=== PATIENT | female | born 1980 | race African-American/Black ===

== ENCOUNTER 2017-11-22 17:39 | Inpatient (IN) | payer OTHER ==
[~2017-11-22] VITALS: Ht 188 cm; Wt 195.5 kg
--- NOTE | ~2017-11-22 | EKG ---
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 : 1980 Requested By: Romana Barton Order Number: [id number] MD: Antonio Boucher Measurements Intervals [place] Rate: 112 P: 71 ME: 164 QRS: 70 QRSD: 88 T: 28 QT: 322 QTc: 440 Interpretive Statements Sinus tachycardia Otherwise no significant abnormality Compared to ECG 07/01/2013 16:21:45 T-wave abnormality no longer present Electronically Signed On 11-23-2017 8:04:49 CDT by Antonio Boucher [email or web address] <ELECTRONICALLY SIGNED> By: Antonio Boucher MD, [facility] 11/23/17 0804 1800 1800 Antonio Boucher MD, [facility] /EPI
--- NOTE | ~2017-11-22 | HC ---
[facility] [place] [address] CONSULTATION Name: CIRILO NI Fam Room #: 349-I ADM IN M.R.#: [id number] Admission: 11/22/17 Attend Phys: Oc Clement MD Discharge: Date of : 78 Report #: [id number] THIS REPORT FOR: //name// CC: Oc Clement [facility] physician/PCP DATE OF SERVICE: 11/23/2017 ENDOCRINE CONSULTATION LOCATION: The patient in room 349, [facility]. Patient of Dr. Oc Clement. SUBJECTIVE: A 37-year-old black female with a long history of morbid obesity and a family history of diabetes occurring in her mother and both maternal grandparents. The patient has had chronic obesity since age 12 with some increasing recent weight gain. She is not on any specific dietary restriction and snacks frequently. Her activity level is extremely limited. She has no prior known history of diabetes. The patient was admitted with nausea, dizziness and orthostasis with recent problems with polyuria, polydipsia, etc. Upon admission, the patient's blood sugar was found to be greater than 600, and she was admitted and treated with insufficient limited IV fluids and probably unnecessary intravenous insulin with a rapid lowering blood sugar, but unfortunately, very limited rehydration. The patient also has a history of hypertension and has been on a variety of different medications. Currently, she has been on amlodipine and hydrochlorothiazide, which can also worsen both insulin resistance and lipid intolerance. Otherwise, the patient has a history of migraine headaches for which she was receiving verapamil. She has no other pertinent past or family medical history to report at this time that has not previously been documented. OBJECTIVE: LABORATORY DATA: Admission glucose 622 as mentioned above. Other laboratory studies show sodium 136, potassium 3.5, chloride 105, CO2 of 22, creatinine 1.1 in a dehydrated state. Hemoglobin A1c has been drawn, but is pending. PHYSICAL EXAMINATION: GENERAL: Well-nourished, well-developed, morbidly obese 37-year-old black female who was alert and oriented x 3. She is in no acute distress. Height is reported to be approximately 6 feet 2 inches, weight is over 400 pounds. SKIN: Warm and moist with decreased turgor. VITAL SIGNS: The patient is afebrile, heart rate 80 and regular, blood pressure 122/82. The remainder of the exam is euthyroid and prominent only for both central and peripheral exogenous obesity. [facility] [address] [place] [address] CONSULTATION Name: CIRILO NI Fam Room #: 349-I [facility] IN [facility]#: [id number] Admission: 11/22/17 Attend Phys: Oc Clement MD Discharge: Date of : 78 Report #: [id number] IMPRESSION: 1. Diabetes mellitus, out of control. 2. Morbid obesity with severe insulin resistance and hyperinsulinemia. 3. Severe dehydration due to the above. 4. The patient has been on HCTZ chronically, which can worsen insulin resistance as well as lipid intolerance. PLAN: 1. We will institute vigorous rehydration since patients in this situation are usually at least 6 and most commonly at least 10 liters depleted at admission. The primary therapy is most effective when it is vigorous hydration and very limited if any insulin therapy, which can usually be administered adequately by limited subq injections. The patient is almost certainly a candidate for oral therapy once her blood sugar and hydration are improved. 2. Since the hospital does not have adequate diabetes education, this will need to be accomplished aggressively post discharge. 3. We will discontinue hydrochlorothiazide and institute appropriate JORGE LUIS inhibitor therapy both for blood pressure control and renal prophylaxis. 4. Given the patient initial instruction into the etiology, pathology and pathophysiology of diabetes, and this will need to be continued on an ongoing and lifelong basis. 5. The patient is probably an excellent candidate for the use of metformin, which will take weeks to equilibrate as well as a GLP-1 inhibitor in addition to initial therapy with insulin since the patient has exhausted her pancreatic reserve at least on a temporary basis. Thank you very much for this consultation. I will continue to follow the patient with you for management and treatment of diabetes mellitus. <ELECTRONICALLY SIGNED> By: Gautam Branch MD 11/24/17 1036 [id number] Gautam Branch MD /nt
[~2017-11-22 17:39] MED LIST: AMOXICILLIN 50500 M1 PO; BAYER MIGRAINE1 EACH PO; IBUPROFEN 600600 M1 PO; NOHOMEMEDICATIONS; NORCO 5-325 TA1 EACH PO; PENICILLIN V P500 MG PO; ZPAK PO
[2017-11-22 17:45] VITALS: BP 154/103
[2017-11-22] MEDS ORDERED: HYDROCHLOROTH12.5 M1 PO (17:55)
[2017-11-22] MEDS ORDERED: AMITRIPTYLINE H25 M2 PO (17:55)
[2017-11-22 18:10] LABS: URINE BILIRUBIN NEGATIVE (Negative); URINE BLOOD NEGATIVE (Negative); URINE CLARITY CLEAR; URINE COLOR YELLOW; URINE GLUCOSE-RANDOM* 3+ (Negative); URINE KETONES NEGATIVE (Negative); URINE LEUKOCYTES-REFLEX NEGATIVE (Negative); URINE NITRITE-REFLEX NEGATIVE (Negative); URINE PROTEIN (DIPSTICK) NEGATIVE (Negative); URINE SPECIFIC GRAVITY <= 1.005 (1.005-1.035); URINE UROBILINOGEN 0.2 E.U./dl (0.2-1.0)
[2017-11-22 18:15] LABS: ABSOLUTE NEUTROPHILS 3.3 thou/uL (1.4-8.2); BASOPHILS 1.2 % (0.0-2.0); EOSINOPHILS 1.7 % (0.0-3.0); HEMATOCRIT 41.7 % (37.0-47.0); HEMOGLOBIN 14.1 gm/dL (12.0-15.0); LYMPHOCYTES 42.9 % (24.0-44.0); MCH 27.3 pg (26.0-34.0); MCHC 33.7 g/dL (28.0-37.0); MONOCYTES 6.6 % (1.0-8.0); PLATELET COUNT 235 thou/uL (150-400); POLYS 47.6 % (36.0-66.0); RBC 5.15 mil/uL (4.20-5.00); RDW 15.1 % (10.5-14.5); WBC 6.9 thou/uL (4.0-11.0)
[2017-11-22 18:25] LABS: ANION GAP 10 mmol/L (7-16); BUN 11 mg/dL (7-18); CALCIUM 9.3 mg/dL (8.5-10.1); CHLORIDE 96 mmol/L (98-107); CO2 21 mmol/L (21-32); CREATININE 1.3 mg/dL (0.6-1.0); SODIUM 127 mmol/L (136-145)
[2017-11-22 18:26] LABS: GLUCOSE 622 mg/dL (74-106)
[2017-11-22 18:30] LABS: ALBUMIN 3.5 g/dL (3.4-5.0); SGOT 36 U/L (15-37); SGPT 73 U/L (30-65); TOTAL BILIRUBIN 0.3 mg/dL (<0.1-1.0); TOTAL PROTEIN 7.8 g/dL (6.4-8.2); TROPONIN-I <0.06 ng/mL (<0.06)
[2017-11-22 20:35] VITALS: BP 171/98
[2017-11-22 21:00] VITALS: BP 154/98
[2017-11-22 21:34] LABS: MAGNESIUM 1.9 mg/dL (1.8-2.4); PHOSPHORUS 3.9 mg/dL (2.5-4.9)
[2017-11-23 00:50] VITALS: BP 148/92
[2017-11-23 04:59] VITALS: BP 105/58
[2017-11-23 06:25] LABS: HEMATOCRIT 37.3 % (37.0-47.0); HEMOGLOBIN 12.5 gm/dL (12.0-15.0); MCH 27.4 pg (26.0-34.0); MCHC 33.6 g/dL (28.0-37.0); MCV 81.4 fL (80.0-100.0); RBC 4.59 mil/uL (4.20-5.00); WBC 7.5 thou/uL (4.0-11.0)
[2017-11-23 06:46] LABS: ALBUMIN 2.8 g/dL (3.4-5.0); CALCIUM 8.6 mg/dL (8.5-10.1); CREATININE 1.1 mg/dL (0.6-1.0); POTASSIUM 3.5 mmol/L (3.5-5.1); TOTAL BILIRUBIN 0.4 mg/dL (<0.1-1.0); TOTAL PROTEIN 6.5 g/dL (6.4-8.2)
[2017-11-23 08:39] VITALS: BP 126/78
[2017-11-23 12:11] VITALS: BP 122/82
[2017-11-23 17:10] VITALS: BP 134/60
[2017-11-23 19:40] VITALS: BP 155/97
[2017-11-24 03:11] LABS: GLYCOHEMOGLOBIN (HGB A1C) 10.5 % (4.8-5.6)
[2017-11-24 04:15] VITALS: BP 122/81
[2017-11-24 08:18] VITALS: BP 174/108
[2017-11-24 12:04] VITALS: BP 160/90
[2017-11-24 19:10] VITALS: BP 160/89
[2017-11-24 22:00] VITALS: BP 147/87
[2017-11-25 03:41] VITALS: BP 112/67
[2017-11-25 07:23] VITALS: BP 111/65
[2017-11-25 12:29] VITALS: BP 168/104
[2017-11-25 15:55] VITALS: BP 159/86
[2017-11-25 18:47] VITALS: BP 122/64
[2017-11-26 03:46] VITALS: BP 130/79
[2017-11-26 07:18] VITALS: BP 158/106
[2017-11-26] MEDS ORDERED: ACCUPRIL40 MG PO (08:16)
[2017-11-26 11:51] VITALS: BP 152/96
[2017-11-26] MEDS ORDERED: GLUCOPHAGE500 MG PO (13:27)
[2017-11-26] MEDS ORDERED: TRADJENTA5 MG PO (13:27)
[2017-11-26] MEDS ORDERED: HUMALOG100 UNIT/1 SUBQ (13:28)
[2017-11-26] MEDS ORDERED: LANTUS100 UNIT/M SUBQ (13:39)
[2017-11-26 13:51] VITALS: BP 152/96
[2017-11-26 14:19] VITALS: BP 152/96
== END 2017-11-26 14:55 | disposition home or self-care (01) | DRG 637 ==
LOC: ER 17:39 → 3W 20:07 → EROBS 20:07 → 3W 20:49
PROVIDERS: Hospitalist; Nurse Practitioner Family; Physician Assistant
DX: E11.00 Type 2 diabetes mellitus with hyperosmolarity without nonketotic hyperglycemic-hyperosmolar coma (NKHHC) (principal); E43 Unspecified severe protein-calorie malnutrition; Z68.43 Body mass index [BMI] 50.0-59.9, adult; I95.1 Orthostatic hypotension; G43.909 Migraine, unspecified, not intractable, without status migrainosus; I12.9 Hypertensive chronic kidney disease with stage 1 through stage 4 chronic kidney disease, or unspecified chronic kidney disease; E11.22 Type 2 diabetes mellitus with diabetic chronic kidney disease; R26.2 Difficulty in walking, not elsewhere classified; E66.01 Morbid (severe) obesity due to excess calories; E86.0 Dehydration; Z83.3 Family history of diabetes mellitus; Z82.49 Family history of ischemic heart disease and other diseases of the circulatory system; Z79.899 Other long term (current) drug therapy
CPT/HCPCS: 10879

== ENCOUNTER 2018-11-29 09:47 | Emergency (ER) | payer OTHER ==
[~2018-11-29] VITALS: Ht 188 cm; Wt 195.1 kg
[~2018-11-29 09:47] MED LIST changes: +ACCUPRIL40 MG PO; +AMITRIPTYLINE H25 M2 PO; +ANUSOL-HC25 MG RECTAL; +GLUCOPHAGE500 MG PO; +HUMALOG100 UNIT/1 SUBQ; +HYDROCHLOROTH12.5 M1 PO; +LANTUS100 UNIT/M SUBQ; +MACROBID 100 M100 M1 PO; +MIRALAX17 GM PO; +NORVASC5 MG PO; +TRADJENTA5 MG PO
[2018-11-29 10:25] LABS: URINE BILIRUBIN NEGATIVE (Negative); URINE BLOOD 2+ (Negative); URINE CLARITY CLOUDY; URINE COLOR YELLOW; URINE GLUCOSE-RANDOM* 2+ (Negative); URINE KETONES TRACE (Negative); URINE NITRITE-REFLEX NEGATIVE (Negative); URINE PROTEIN (DIPSTICK) 2+ (Negative); URINE SPECIFIC GRAVITY 1.025 (1.005-1.035); URINE UROBILINOGEN 0.2 E.U./dl (0.2-1.0)
[2018-11-29 10:27] LABS: URINE LEUKOCYTES-REFLEX 2+ (Negative)
[2018-11-29 10:38] LABS: ABSOLUTE NEUTROPHILS 4.1 thou/uL (1.4-8.2); EOSINOPHILS 1.8 % (0.0-3.0); HEMATOCRIT 37.9 % (37.0-47.0); HEMOGLOBIN 12.7 gm/dL (12.0-15.0); LYMPHOCYTES 34.7 % (24.0-44.0); MCH 26.3 pg (26.0-34.0); MCHC 33.5 g/dL (28.0-37.0); MCV 78.5 fL (80.0-100.0); MONOCYTES 6.5 % (1.0-8.0); PLATELET COUNT 341 thou/uL (150-400); RBC 4.83 mil/uL (4.20-5.00); RDW 15.6 % (10.5-14.5); WBC 7.3 thou/uL (4.0-11.0)
[2018-11-29 10:46] LABS: CALCIUM 9.1 mg/dL (8.5-10.1); CREATININE 1.1 mg/dL (0.6-1.0); POTASSIUM 4.1 mmol/L (3.5-5.1)
[2018-11-29 10:49] LABS: BACTERIA-REFLEX >30 Many /HPF (None Seen); CASTS None Seen /LPF (None Seen); CRYSTALS None Seen /LPF (None Seen); SQUAMOUS 4-10 Moderate /LPF (0-3); URINE RBC 3-10 Few /HPF (0-2); URINE WBC-REFLEX >25 Many /HPF (0-5)
[2018-11-29 10:52] LABS: ALBUMIN 3.2 g/dL (3.4-5.0); TOTAL BILIRUBIN 0.3 mg/dL (<0.1-1.0); TOTAL PROTEIN 7.5 g/dL (6.4-8.2)
[2018-11-29] MEDS ORDERED: NORCO 5-325 TA1 EAC1 PO (12:11)
[2018-11-29] MEDS ORDERED: CIPRO500 MG PO (12:11)
[2018-11-29] MEDS ORDERED: ZOFRAN ODT4 MG PO (12:11)
[2018-11-29 13:24] VITALS: BP 134/83
== END 2018-11-29 13:24 | disposition home or self-care (01) ==
LOC: ER 09:47
PROVIDERS: Nurse Practitioner Family
DX: N12 Tubulo-interstitial nephritis, not specified as acute or chronic (principal); K64.9 Unspecified hemorrhoids; R11.2 Nausea with vomiting, unspecified; G43.909 Migraine, unspecified, not intractable, without status migrainosus; I10 Essential (primary) hypertension; F32.9 Major depressive disorder, single episode, unspecified

== ENCOUNTER 2018-11-29 17:57 | Emergency (ER) | payer OTHER ==
[~2018-11-29] VITALS: Ht 188 cm; Wt 198.7 kg
[~2018-11-29 17:57] MED LIST changes: +CIPRO500 MG PO; +NORCO 5-325 TA1 EAC1 PO; +ZOFRAN ODT4 MG PO
[2018-11-29 20:35] LABS: ABSOLUTE NEUTROPHILS 13.5 thou/uL (1.4-8.2); BASOPHILS 0.2 % (0.0-2.0); HEMOGLOBIN 12.5 gm/dL (12.0-15.0); LYMPHOCYTES 6.7 % (24.0-44.0); MCHC 32.9 g/dL (28.0-37.0); MONOCYTES 6.3 % (1.0-8.0); PLATELET COUNT 300 thou/uL (150-400); POLYS 86.8 % (36.0-66.0); RBC 4.81 mil/uL (4.20-5.00); RDW 15.4 % (10.5-14.5); WBC 15.6 thou/uL (4.0-11.0)
[2018-11-29 20:39] LABS: CALCIUM 9.1 mg/dL (8.5-10.1); CREATININE 1.5 mg/dL (0.6-1.0); POTASSIUM 4.1 mmol/L (3.5-5.1)
[2018-11-29 20:46] LABS: ALBUMIN 2.7 g/dL (3.4-5.0); DIRECT BILIRUBIN 0.1 mg/dL (<0.1-0.3); TOTAL BILIRUBIN 0.6 mg/dL (<0.1-1.0); TOTAL PROTEIN 7.8 g/dL (6.4-8.2)
[2018-11-29 20:46] LABS: URINE BILIRUBIN NEGATIVE (Negative); URINE BLOOD 3+ (Negative); URINE CLARITY SL CLOUDY; URINE COLOR YELLOW; URINE GLUCOSE-RANDOM* NEGATIVE (Negative); URINE KETONES NEGATIVE (Negative); URINE NITRITE-REFLEX NEGATIVE (Negative); URINE PROTEIN (DIPSTICK) 2+ (Negative); URINE SPECIFIC GRAVITY 1.015 (1.005-1.035); URINE UROBILINOGEN 0.2 E.U./dl (0.2-1.0)
[2018-11-29 20:48] LABS: URINE LEUKOCYTES-REFLEX 3+ (Negative)
[2018-11-29 20:57] LABS: URINE WBC-REFLEX >25 Many /HPF (0-5)
[2018-11-29 20:58] LABS: CASTS None Seen /LPF (None Seen); CRYSTALS None Seen /LPF (None Seen); SQUAMOUS None Seen /LPF (0-3); URINE RBC 3-10 Few /HPF (0-2)
[2018-11-29 23:59] VITALS: BP 149/87
== END 2018-11-30 00:04 | disposition home or self-care (01) ==
LOC: ER 17:57
PROVIDERS: Emergency Medicine
DX: K80.20 Calculus of gallbladder without cholecystitis without obstruction (principal); G43.909 Migraine, unspecified, not intractable, without status migrainosus; I10 Essential (primary) hypertension; F32.9 Major depressive disorder, single episode, unspecified